=== PATIENT | male | born 1970 | race Caucasian/White ===

== ENCOUNTER 2023-12-25 07:22 | Outpatient (CLI) | payer OTHER, SELFPAY ==
--- NOTE | 2023-12-25 07:25 | MR_ITS ---
WS: [id number] MRI LEFT KNEE HISTORY: INTERNAL DERANGEMENT L KNEE COMPARISON: None available. Anterior cruciate ligament: Interruption of the fibers of the mid ACL. Consistent with a high-grade a nd probable complete tear. Some of the fibers of the ACL remain in a normal position. There is marked increased T2 signal throughout the majority of the ACL. Posterior cruciate ligament: Intact. Medial collateral ligament: Intact. Posterior lateral corner structures: Intact. Medial menisci: Intact. Normal signal, size and shape. Lateral meniscus: Abnormal signal in the anterior horn. Anterior horn is small caliber there is incre ased signal along the superior articular margin. Posterior horn is also abnormal in size and signal. Small horn with truncation of the free edge. There is abnormal signal extending along the intra-artic ular surface. More focal increased signal at the meniscal root. Extensor mechanism: Distal quadriceps tendon and patellar tendons are intact. Fluid and soft tissue: Small suprapatellar joint effusion. Mild edema. No Gipson's cyst. Osseous and articular structures: Patellofemoral compartment: Mild narrowing of the patellofemoral joint space. Mild chondromalacia lat eral patellar facet. No marrow edema. Medial compartment: Mild narrowing of the medial compartment. Mild chondromalacia along the weightbea ring surface of the femoral condyle. No marrow edema. Lateral compartment: Mild narrowing of the lateral compartment. Full-thickness cartilage defect along the weightbearing surface of the anterior femoral condyle. This corresponds to the anterior meniscal tear location. Mild chondromalacia tibial plateau. Osteochondral lesion in the posterior lateral fem oral condyle closely associated with the intercondylar notch. MR/MR knee LT wo con* [id number] IMPRESSION: 1. High-grade, probable complete tear of the mid ACL. 2. Abnormal signal in the anterior and posterior horns of the lateral meniscus . Complex tear in the anterior horn predominantly involves the superior articul ar surface but extends throughout. Small caliber posterior horn with abnormal s ignal along the intra-articular surface and the meniscal root. 3. Tricompartment mild chondromalacia. Larger areas of chondromalacia along th e weightbearing surfaces of the femoral condyle. 4. Small suprapatellar joint effusion.
== END 2023-12-25 07:23 | disposition home or self-care (01) ==
PROVIDERS: Visit Provider Orthopaedic Surgery
DX: M23.612 Other spontaneous disruption of anterior cruciate ligament of left knee (principal); M24.10 Other articular cartilage disorders, unspecified site; M94.262 Chondromalacia, left knee
CPT/HCPCS: 73721